=== PATIENT | female | born 1995 | race Caucasian/White ===

== ENCOUNTER 2016-09-01 20:44 | Emergency (ER) | payer MEDICAID ==
[~2016-09-01] VITALS: Ht 154.9 cm; Wt 66.7 kg
[~2016-09-01 20:44] MED LIST: ALBU8.5H5 INH; BUDE10.22 INH; FAMO20TA7 PO; ONDA4TAB10 PO
[2016-09-01 23:40] VITALS: BP 128/64
== END 2016-09-01 23:42 | disposition home or self-care (01) ==
LOC: ED 23:35
DX: R07.89 Other chest pain (principal); R05 Cough; J45.909 Unspecified asthma, uncomplicated
CPT/HCPCS: 71010; 93005

== ENCOUNTER 2017-02-19 21:55 | Emergency (ER) | payer MEDICAID ==
[~2017-02-19] VITALS: Ht 154.9 cm; Wt 60.4 kg
[2017-02-19 21:58] VITALS: BP 110/84
[2017-02-19] MEDS ORDERED: ALBUTEROL SULFATE 2.5 MG/3 ML ONE (22:47)
[2017-02-19] MEDS ORDERED: ALBUTEROL SULFATE 2.5 MG/3 ML NPPB ONE (23:00)
== END 2017-02-19 23:37 | disposition home or self-care (01) ==
LOC: ED 23:25
DX: J45.31 Mild persistent asthma with (acute) exacerbation (principal)
CPT/HCPCS: 71020; 94640; 99284; J7512; J7613

== ENCOUNTER 2017-04-03 13:34 | Emergency (ER) | payer MEDICAID ==
[~2017-04-03] VITALS: Ht 154.9 cm; Wt 62.0 kg
[2017-04-03 13:37] VITALS: BP 108/73
[2017-04-03] MEDS ORDERED: ALBUTEROL/IPRATROPIUM 2.5MG/0.5MG, 3 ML NPPB ONE (14:00)
[2017-04-03] MEDS ORDERED: ALBUTEROL/IPRATROPIUM 2.5MG/0.5MG, 3 ML ONE (14:36)
== END 2017-04-03 15:22 | disposition home or self-care (01) ==
LOC: ED 14:01
DX: J45.31 Mild persistent asthma with (acute) exacerbation (principal); F17.200 Nicotine dependence, unspecified, uncomplicated
CPT/HCPCS: 94640; 99283; J7512; J7620

== ENCOUNTER 2017-04-09 11:33 | Emergency (ER) | payer MEDICAID ==
[2017-04-09 11:42] VITALS: BP 126/83
[2017-04-09] MEDS ORDERED: ALBUTEROL/IPRATROPIUM 2.5MG/0.5MG, 3 ML ONE (12:20)
[2017-04-09] MEDS ORDERED: ALBUTEROL/IPRATROPIUM 2.5MG/0.5MG, 3 ML NPPB ONE (12:30)
== END 2017-04-09 13:53 | disposition home or self-care (01) ==
LOC: ED 13:35
DX: O99.511 Diseases of the respiratory system complicating pregnancy, first trimester (principal); Z3A.10 10 weeks gestation of pregnancy; J45.31 Mild persistent asthma with (acute) exacerbation
CPT/HCPCS: 93005; 94640; 99283; J7620

== ENCOUNTER 2017-06-08 23:09 | Emergency (ER) | payer MEDICAID ==
[~2017-06-08] VITALS: Ht 154.9 cm; Wt 60.3 kg
[2017-06-08] MEDS ORDERED: ALBUTEROL SULFATE 2.5 MG/3 ML ONE (23:52)
[2017-06-09] MEDS ORDERED: ALBUTEROL SULFATE 2.5 MG/3 ML NPPB ONE
[2017-06-09 00:16] VITALS: BP 133/79
== END 2017-06-09 00:18 | disposition home or self-care (01) ==
LOC: ED 06-09 00:12
DX: J45.21 Mild intermittent asthma with (acute) exacerbation (principal)
CPT/HCPCS: 94640; 99283; J7512; J7613

== ENCOUNTER 2017-07-28 22:46 | Emergency (ER) | payer MEDICAID ==
[~2017-07-28] VITALS: Ht 154.9 cm; Wt 78.0 kg
[2017-07-28 22:48] VITALS: BP 97/69
[2017-07-28] MEDS ORDERED: SODIUM CHLORIDE FLUSH 10ML SYR IVF ONE (23:00)
[2017-07-28] MEDS ORDERED: MORPHINE SULFATE 4 MG/ML, 1ML IVPush PRN (23:00)
[2017-07-28] MEDS ORDERED: SODIUM CHLORIDE 0.9% 1,000ML IVBOLUS ONE (23:00)
[2017-07-28 23:20] LABS: BASOPHILS # (AUTO) 0.01 x10^3/uL (0-0.1); BASOPHILS % (AUTO) 0 % (0-1); EOSINOPHILS # (AUTO) 0.12 x10^3/uL (0-0.4); EOSINOPHILS % (AUTO) 1 % (1-7); LYMPHOCYTES # (AUTO) 1.91 x10^3/uL (1-3.4); LYMPHOCYTES % (AUTO) 13 % (22-44); MD NO; MEAN CORPUSCULAR HEMOGLOBIN 26.6 pg (27.0-34.8); MEAN CORPUSCULAR HGB CONC 33.1 g/dL (32.4-35.8); MEAN CORPUSCULAR VOLUME 80.4 fL (80-100); MEAN PLATELET VOLUME 7.2 fL (7.4-10.4); MONOCYTES # (AUTO) 0.58 x10^3/uL (0.2-0.8); MONOCYTES % (AUTO) 4 % (2-9); NEUTROPHILS % (AUTO) 82 % (42-75); PLATELET COUNT 470 x10^3/uL (130-400); RED BLOOD COUNT 4.45 x10^6/uL (3.82-5.3); RED CELL DISTRIBUTION WIDTH 16.3 % (9.6-15.2)
[2017-07-28 23:34] LABS: ALBUMIN 2.7 g/dL (3.4-5.0); ANION GAP 11 mmol/L (5-15); CALCIUM 8.6 mg/dL (8.5-10.1); CHLORIDE 98 mmol/L (98-107); CREATININE 0.62 mg/dL (0.55-1.02)
[2017-07-28 23:38] LABS: TROPONIN I < 0.015 ng/mL (0.000-0.045)
[2017-07-29 00:10] LABS: AMPHETAMINE SCREEN, URINE Positive (Negative); BARBITURATE SCREEN, URINE Negative (Negative); BENZODIAZEPINE SCREEN, URINE Positive (Negative); CANNABINOID SCREEN, URINE Negative (Negative); COCAINE SCREEN, URINE Negative (Negative); METHADONE SCREEN, URINE Negative (Negative); OPIATE SCREEN, URINE Negative (Negative)
[2017-07-29] MEDS ORDERED: OMNIPAQUE 350 MG/ML, 100ML BOTTLE ONE (00:18)
== END 2017-07-29 01:06 | disposition home or self-care (01) ==
LOC: ED 23:23
DX: O99.512 Diseases of the respiratory system complicating pregnancy, second trimester (principal); J18.9 Pneumonia, unspecified organism; Z87.891 Personal history of nicotine dependence; Z3A.24 24 weeks gestation of pregnancy
CPT/HCPCS: 36415; 71045; 71275; 80048; 80307; 82040; 84484; 85025; 85379; 93005; 96360; 99285; J7030; Q9967

== ENCOUNTER 2017-08-22 17:25 | Emergency (ER) | payer MEDICAID ==
[~2017-08-22] VITALS: Ht 154.9 cm; Wt 63.6 kg
[2017-08-22] MEDS ORDERED: ALBUTEROL/IPRATROPIUM 2.5MG/0.5MG, 3 ML NPPB ONE (18:00)
[2017-08-22] MEDS ORDERED: ALBUTEROL/IPRATROPIUM 2.5MG/0.5MG, 3 ML ONE (18:03)
[2017-08-22 18:38] LABS: BASOPHILS # (AUTO) 0.03 x10^3/uL (0-0.1); BASOPHILS % (AUTO) 0 % (0-1); EOSINOPHILS # (AUTO) 0.12 x10^3/uL (0-0.4); EOSINOPHILS % (AUTO) 2 % (1-7); LYMPHOCYTES # (AUTO) 1.05 x10^3/uL (1-3.4); LYMPHOCYTES % (AUTO) 17 % (22-44); MD NO; MEAN CORPUSCULAR HEMOGLOBIN 26.4 pg (27.0-34.8); MEAN CORPUSCULAR HGB CONC 32.7 g/dL (32.4-35.8); MEAN CORPUSCULAR VOLUME 80.7 fL (80-100); MONOCYTES # (AUTO) 0.36 x10^3/uL (0.2-0.8); MONOCYTES % (AUTO) 6 % (2-9); NEUTROPHILS # (AUTO) 4.79 x10^3/uL (1.8-6.8); NEUTROPHILS % (AUTO) 75 % (42-75); PLATELET COUNT 257 x10^3/uL (130-400); RED BLOOD COUNT 3.95 x10^6/uL (3.82-5.3)
[2017-08-22 18:47] LABS: ALANINE AMINOTRANSFERASE 19 U/L (12-78); ALBUMIN 2.5 g/dL (3.4-5.0); ANION GAP 11 mmol/L (5-15); CALCIUM 8.1 mg/dL (8.5-10.1); CHLORIDE 104 mmol/L (98-107); CREATININE 0.52 mg/dL (0.55-1.02)
[2017-08-22 18:50] LABS: ALKALINE PHOSPHATASE 81 U/L (45-117); BILIRUBIN,TOTAL 0.2 mg/dL (0.2-1.0); TOTAL PROTEIN 6.7 g/dL (6.4-8.2)
[2017-08-22] MEDS ORDERED: CEFTRIAXONE PMX 1GM/50ML 50 ML ONE (18:57)
[2017-08-22] MEDS ORDERED: CEFTRIAXONE 1,000 MG in SODIUM CHLORIDE 0.9% 50 ML IVPB ONE (19:00)
[2017-08-22] MEDS ORDERED: SODIUM CHLORIDE 0.9% 1,000ML IVBOLUS ONE (19:00)
[2017-08-22] MEDS ORDERED: CEFTRIAXONE PMX 1GM/50ML 50 ML IVPB ONE (19:00)
[2017-08-22 19:37] LABS: MICROSCOPIC INDICATED
[2017-08-22 19:38] LABS: CULTURE INDICATED? YES
[2017-08-22 20:04] VITALS: BP 104/51
== END 2017-08-22 20:25 | disposition home or self-care (01) ==
LOC: ED 19:45
DX: O99.513 Diseases of the respiratory system complicating pregnancy, third trimester (principal); O99.613 Diseases of the digestive system complicating pregnancy, third trimester; J15.9 Unspecified bacterial pneumonia; J45.909 Unspecified asthma, uncomplicated; K21.9 Gastro-esophageal reflux disease without esophagitis; Z3A.29 29 weeks gestation of pregnancy
CPT/HCPCS: 36415; 71046; 80053; 81001; 85025; 87086; 93005; 94640; 96374; 99285; J7030; J7620

== ENCOUNTER 2017-11-05 14:08 | Emergency (ER) | payer MEDICAID ==
[2017-11-05] MEDS ORDERED: LORazepam 1MG TABLET ONE (14:28)
[2017-11-05] MEDS ORDERED: LORazepam 1MG TABLET PO ONE (14:30)
[2017-11-05 15:00] LABS: BASOPHILS % (AUTO) 1 % (0-1); EOSINOPHILS # (AUTO) 0.25 x10^3/uL (0-0.4); EOSINOPHILS % (AUTO) 3 % (1-7); LYMPHOCYTES # (AUTO) 1.28 x10^3/uL (1-3.4); LYMPHOCYTES % (AUTO) 14 % (22-44); MD NO; MEAN CORPUSCULAR HEMOGLOBIN 23.1 pg (27.0-34.8); MEAN CORPUSCULAR HGB CONC 31.7 g/dL (32.4-35.8); MEAN CORPUSCULAR VOLUME 72.8 fL (80-100); MEAN PLATELET VOLUME 7.4 fL (7.4-10.4); MONOCYTES # (AUTO) 0.49 x10^3/uL (0.2-0.8); MONOCYTES % (AUTO) 5 % (2-9); NEUTROPHILS # (AUTO) 7.22 x10^3/uL (1.8-6.8); NEUTROPHILS % (AUTO) 77 % (42-75); PLATELET COUNT 406 x10^3/uL (130-400); RED BLOOD COUNT 4.42 x10^6/uL (3.82-5.3); RED CELL DISTRIBUTION WIDTH 17.4 % (9.6-15.2)
[2017-11-05 15:10] LABS: ALANINE AMINOTRANSFERASE 28 U/L (12-78); ALBUMIN 2.7 g/dL (3.4-5.0); ANION GAP 10 mmol/L (5-15); CHLORIDE 108 mmol/L (98-107); CREATININE 0.58 mg/dL (0.55-1.02)
[2017-11-05 15:11] LABS: SALICYLATE LEVEL < 1.7 mg/dL (2.8-20.0)
[2017-11-05 15:12] LABS: ALKALINE PHOSPHATASE 136 U/L (45-117); BILIRUBIN,TOTAL 0.3 mg/dL (0.2-1.0); TOTAL PROTEIN 7.3 g/dL (6.4-8.2)
[2017-11-05 15:15] LABS: ACETAMINOPHEN < 2 mcg/mL (10-30)
[2017-11-05 16:14] LABS: AMPHETAMINE SCREEN, URINE Positive (Negative); BARBITURATE SCREEN, URINE Negative (Negative); BENZODIAZEPINE SCREEN, URINE Negative (Negative); CANNABINOID SCREEN, URINE Negative (Negative); COCAINE SCREEN, URINE Negative (Negative); METHADONE SCREEN, URINE Negative (Negative); OPIATE SCREEN, URINE Negative (Negative)
[2017-11-05 21:50] VITALS: BP 124/80
== END 2017-11-05 21:48 | disposition home or self-care (01) ==
LOC: ED 17:10
DX: F15.20 Other stimulant dependence, uncomplicated (principal); Z72.89 Other problems related to lifestyle; J45.909 Unspecified asthma, uncomplicated; Z79.899 Other long term (current) drug therapy
CPT/HCPCS: 36415; 80053; 80307; 80329; 85025; 99284; G0480

== ENCOUNTER 2018-04-13 12:37 | Emergency (ER) | payer MEDICAID ==
[~2018-04-13] VITALS: Ht 154.9 cm; Wt 67.2 kg
[2018-04-13 12:51] VITALS: BP 119/79
[2018-04-13] MEDS ORDERED: LIDOCAINE-MPF 1%, 5ML ONE (13:26)
[2018-04-13] MEDS ORDERED: LIDOCAINE 2%, 20ML SQ ONE (13:30)
== END 2018-04-13 13:55 | disposition home or self-care (01) ==
LOC: ED 13:32
DX: L02.412 Cutaneous abscess of left axilla (principal)
CPT/HCPCS: 10060; 99283

== ENCOUNTER 2018-04-17 11:52 | Emergency (ER) | payer MEDICAID ==
[~2018-04-17] VITALS: Ht 154.9 cm; Wt 66.4 kg
[2018-04-17 12:01] VITALS: BP 118/82
== END 2018-04-17 13:27 | disposition home or self-care (01) ==
LOC: ED 12:15
DX: Z48.01 Encounter for change or removal of surgical wound dressing (principal); F17.200 Nicotine dependence, unspecified, uncomplicated
CPT/HCPCS: 99283

== ENCOUNTER 2020-06-25 04:12 | Emergency (ER) | payer MEDICAID ==
[~2020-06-25] VITALS: Ht 154.9 cm; Wt 68.9 kg
--- NOTE | 2020-06-25 04:50 | NUR ---
pt to room from lobby
--- NOTE | 2020-06-25 05:05 | NUR ---
cc of fatigue x 1 day and chills x 2 days. denies any covid exposures.
[2020-06-25 05:57] LABS: BASOPHILS % (AUTO) 1 % (0-1); EOSINOPHILS % (AUTO) 4 % (1-7); LYMPHOCYTES % (AUTO) 41 % (22-44); MEAN CORPUSCULAR HEMOGLOBIN 29.9 pg (27.0-34.8); MEAN CORPUSCULAR HGB CONC 33.6 g/dL (32.4-35.8); MEAN PLATELET VOLUME 7.4 fL (7.4-10.4); MONOCYTES % (AUTO) 7 % (2-9); NEUTROPHILS % (AUTO) 47 % (42-75); PLATELET COUNT 336 x10^3/uL (130-400); RED BLOOD COUNT 4.83 x10^6/uL (3.82-5.3); RED CELL DISTRIBUTION WIDTH 15.2 % (9.6-15.2)
--- NOTE | 2020-06-25 05:59 | NUR ---
up to restroom for ua, steady gait
[2020-06-25 06:02] LABS: ALANINE AMINOTRANSFERASE 36 U/L (12-78); ALBUMIN 4.1 g/dL (3.4-5.0); ANION GAP 6 mmol/L (5-15); CALCIUM 8.8 mg/dL (8.5-10.1); CHLORIDE 107 mmol/L (98-107); CREATININE 0.69 mg/dL (0.55-1.02)
[2020-06-25 06:07] LABS: ALKALINE PHOSPHATASE 73 U/L (45-117); BILIRUBIN,TOTAL 0.2 mg/dL (0.2-1.0); TOTAL PROTEIN 8.3 g/dL (6.4-8.2)
[2020-06-25 06:18] LABS: MD NO
[2020-06-25 06:23] LABS: MICROSCOPIC NOT IND
--- NOTE | 2020-06-25 06:28 | NUR ---
us to room
--- NOTE | 2020-06-25 07:00 | NUR ---
REPORT GIVEN TO ELA KERNS
[2020-06-25 07:58] VITALS: BP 125/89
== END 2020-06-25 08:08 | disposition home or self-care (01) ==
LOC: ED 08:06
DX: F10.10 Alcohol abuse, uncomplicated (principal); R53.83 Other fatigue; F15.10 Other stimulant abuse, uncomplicated; F11.10 Opioid abuse, uncomplicated; Z20.822 Contact with and (suspected) exposure to COVID-19; Z72.9 Problem related to lifestyle, unspecified; F17.210 Nicotine dependence, cigarettes, uncomplicated; Y90.0 Blood alcohol level of less than 20 mg/100 ml
CPT/HCPCS: 36415; 76830; 80053; 81003; 83605; 84703; 85025; 87635; 99284

== ENCOUNTER 2020-08-22 02:30 | Emergency (ER) | payer MEDICAID ==
[~2020-08-22] VITALS: Ht 154.9 cm; Wt 68.9 kg
[2020-08-22] MEDS ORDERED: IBUPROFEN 600 MG TABLET ONE (03:46)
[2020-08-22] MEDS ORDERED: IBUPROFEN 200 MG TABLET PO ONE (04:00)
[2020-08-22] MEDS ORDERED: IBUPROFEN 600 MG TABLET PO ONE (04:00)
[2020-08-22 04:19] VITALS: BP 117/65
--- NOTE | 2020-08-22 04:19 | NUR ---
Patient/Caregiver given discharge instructions and they have confirmed that they understand the instructions. Patient ambulatory with steady gait.
== END 2020-08-22 04:21 | disposition home or self-care (01) ==
LOC: ED 04:18
DX: S29.011A Strain of muscle and tendon of front wall of thorax, initial encounter (principal); J45.909 Unspecified asthma, uncomplicated; M54.5 Low back pain; F17.210 Nicotine dependence, cigarettes, uncomplicated; X58.XXXA Exposure to other specified factors, initial encounter; Y93.89 Activity, other specified; Y92.89 Other specified places as the place of occurrence of the external cause; Y99.8 Other external cause status
CPT/HCPCS: 99283; 99406